=== PATIENT | female | born 1980 | race Caucasian/White ===

== ENCOUNTER 2020-10-15 08:09 | Outpatient (REF) | payer BC, SELFPAY | END 2020-10-15 08:10 | disposition home or self-care (01) | LOC: HO.WFDLDS 08:09 | PROVIDERS: PCP Pediatrics; Visit Provider Internal Medicine | DX: Z20.822 Contact with and (suspected) exposure to COVID-19 (principal) | CPT/HCPCS: 36415; C9803; U0003; U0005 ==

== ENCOUNTER 2024-01-25 15:44 | Outpatient (AMB) | payer BC, SELFPAY ==
--- NOTE | 2024-01-25 15:47 | AM.OFFWIN_ITS ---
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 Denies chest pain, sob. Has tried elevation without relief Exam Awake alert NAD, obese RRR LS CTAB + 1 edema LLE, skin intact, no erythema, + PP, antalgic gait favoring left leg, points to area behind knee, lateral aspect and states she feels pain there, LROM given edema RLE w/o edema, skin intact , +PP Neuros intact Plan: Check stat D-dimer - if + tangela need to go to ED If negative, proceed w/ outpatient US of LLE to eval for cause Close f/u early next week Review of Systems Const All systems reviewed & are unremarkable except as noted in HPI and below Assessment & Plan Assessment & Plan (1) Edema of left lower extremity: Code(s): R60.0 - Localized edema Plan: . Plan . Orders: Orders D Dimer High Sensitivity Today R60.0 - Localized edema US venous duplex LE LT Today R60.0 - Localized edema Coding Level of Care Code Est Pt Level 4 (34782) Diagnoses Edema of left lower extremity R60.0
[2024-01-25 15:54] VITALS: BP 124/74; PULSE 84; O2SAT 97; BMI 46.8
== END 2024-01-25 16:20 | disposition home or self-care (01) ==
PROVIDERS: PCP Physician Assistant Medical; Visit Provider Nurse Practitioner Family
DX: R60.0 Localized edema (principal)
CPT/HCPCS: 99214

== ENCOUNTER 2024-01-25 16:01 | Outpatient (REF) | payer BC, SELFPAY ==
[2024-01-25 18:24] LABS: D Dimer High Sensitivity < 150 NG/ML
== END 2024-01-25 16:02 | disposition home or self-care (01) ==
LOC: HO.WFDLDS 16:01
PROVIDERS: Visit Provider Nurse Practitioner Family
DX: R60.0 Localized edema (principal)
CPT/HCPCS: 36415; 85379

== ENCOUNTER 2024-01-30 10:25 | Outpatient (AMB) | payer BC, SELFPAY ==
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
[2024-01-30 10:36] VITALS: BP 118/82; PULSE 76; RESP 16; TEMP 36.9; O2SAT 95; BMI 49.1
== END 2024-01-30 12:05 | disposition home or self-care (01) ==
PROVIDERS: PCP Physician Assistant Medical; Visit Provider Physician Assistant Medical
DX: J02.9 Acute pharyngitis, unspecified (principal); F41.8 Other specified anxiety disorders; E66.01 Morbid (severe) obesity due to excess calories; Z68.42 Body mass index [BMI] 45.0-49.9, adult; Z13.6 Encounter for screening for cardiovascular disorders; H66.002 Acute suppurative otitis media without spontaneous rupture of ear drum, left ear; H72.92 Unspecified perforation of tympanic membrane, left ear; K59.09 Other constipation
CPT/HCPCS: 87880; 96127; 99215

== ENCOUNTER 2025-01-17 09:06 | Outpatient (REF) | payer BC, SELFPAY ==
[2025-01-17 11:49] LABS: Hematocrit 41.6 % (37.0-47.0); Hemoglobin 13.6 g/dl (12.0-16.0); Mean Corpuscular HGB Conc 32.7 g/dl (31.0-35.0); Mean Corpuscular Volume 91.6 fL (80.0-98.0); Mean Platelet Volume 9.5 fL (9.4-12.3); Platelet Count 354 X10*3/uL (160-400); Red Blood Count 4.54 X10*6/uL (4.20-5.50); Red Cell Distribution Width 12.8 % (11.0-16.0); White Blood Count 5.9 X10*3/uL (4.8-10.8)
[2025-01-17 12:02] LABS: Estimated Average Glucose 108 mg/dL; Hemoglobin A1C 127.3945 umol/L; Hemoglobin A1c % 5.4 % (<6.0)
[2025-01-17 13:09] LABS: Alanine Aminotransferase 27 U/L (0-31); Albumin Level 4.3 g/dL (3.5-5.0); Alkaline Phosphatase 71 U/L (39-117); Anion Gap 10 (12-20); Aspartate Amino Transferase 29 U/L (5-31); Bilirubin Total 0.6 mg/dL (0.0-1.0); Blood Urea Nitrogen 11 mg/dL (9-16); Calcium 8.8 mg/dL (8.4-10.2); Carbon Dioxide 27 mmol/L (22-29); Chloride 106 mmol/L (96-108); Cholesterol 157 mg/dL (<200); Estimated Glomerular Filt Rate > 60; Glucose Random 107 mg/dL (60-115); HDL Cholesterol 33 mg/dL (>40); LDL Cholesterol Calculated 92 mg/dL (<100); Potassium 3.9 mmol/L (3.3-5.1); Sodium 139 mmol/L (135-145); Total Protein 6.7 g/dL (6.5-8.0); Triglycerides 160 mg/dL (<150)
[2025-01-17 13:25] LABS: TSH reflex Free T4 4.23 uIU/mL (0.32-4.0)
[2025-01-17 13:55] LABS: Free T4 (Free Thyroxine) 0.78 ng/dL (0.71-1.85)
== END 2025-01-17 09:07 | disposition home or self-care (01) ==
LOC: HO.WFDLDS 09:06
PROVIDERS: Visit Provider Physician Assistant Medical
DX: E66.01 Morbid (severe) obesity due to excess calories (principal); F41.8 Other specified anxiety disorders; Z13.6 Encounter for screening for cardiovascular disorders; Z13.1 Encounter for screening for diabetes mellitus
CPT/HCPCS: 36415; 80053; 80061; 83036; 84439; 84443; 85027

== ENCOUNTER 2025-01-23 08:31 | Outpatient (AMB) | payer BC, SELFPAY ==
--- NOTE | 2025-01-23 08:38 | A.OFFPC_ITS ---
Vital Signs 01/23/25 08:42 Height 5 ft 9 in Weight 337 lb BMI 49.8 BP 120/82 Blood Pressure Location Rt brachial Position Sitting Respiration 16 Pulse 80 Pulse Source Pulse Oximeter Temp 97.3 F Temp Source Temporal Artery Scan Pulse Oximetry (%) 97 Oxygen Delivery Method Room Air Intake Visit Reasons: Request PE Intake Note: Barbara presents in the office today for a physical Allergies No Known Allergies Allergy (Verified 01/23/25 08:41) Tobacco use date assessed: 01/23/25 Dental Screening Dental Screen Date: 01/23/25 Did you have a dental visit in the last 12 months?: Yes Did you have a dental problem in the last 6 months where you did not have access to dental care?: No Was dental information given to patient?: Patient has dentist HPI HPI Comments History of Present Illness Details 44-year-old female with a past medical h istory of depression with anxiety presents for a physical exam. Depression and anxiety treated with bupropion and sertraline. 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 Mammogram-[facility] [place]. Done in November and normal per patient. Reports tender area below right under arm on and off for a month. No palpable mass. Her grandmother had breast cancer in her 90s. An ultrasound is ordered for further evaluation. Her TSH level is mildly elevated. She endorses fatigue and is struggling with her weight. Admits she is not exercising, and she eats a lot of carbohydrates and sugars. She reports insurance is dropping coverage for GLP 1, and she can not pay [id number]. We discussed phentermine, but she is not comfortable with potential side eff ects. We discussed referral to dietitian and weight loss management. She will call if she wants to pursue this. We discussed lifestyle modifications including trying the [email or web address] diet, exercising, avoiding alcohol. If her TSH remains elevated we will start levothyroxine. ROS: Constitutional: No unexplained weight loss, fever, chills, fatigue or night sweats. Eyes: No vision changes, blurry vision, double vision, eye pain, eye redness, eye discharge. ENT: No hearing loss, sneezing, congestion, runny nose or sore throat. Respiratory: No shortness of breath, cough or sputum production. Cardiovascular: No chest pain, chest pressure or chest discomfort. No palpitations or pedal edema. Gastrointestinal: No anorexia, nausea, vomiting or diarrhea. No abdominal pain or blood in stool. Genitourinary: No dysuria, hematuria, urinary frequency. Neurologic: No headache, dizziness, syncope, unilateral weakness, ataxia, numbness or tingling in the extremities. Musculoskeletal: No muscle pain, back pain, joint pain or swelling. Hematologic/Lymphatics: No bleeding or bruising. No painful lymph nodes. Skin: No rash or changing moles or freckles Endocrine: No cold or heat intolerance. No polyuria or polydipsia. Psychiatric: See HPI .Physical exam: Constitutional: Alert, in no distress. Head: Normocephalic. Eyes: Pupils are equal, round and reactive to light. Extraocular muscles intact. Ear, Nose and Throat: Canals clear. TMs normal. Normal nasal mucosa. No nasal discharge. No oral lesions. Neck: Supple, Full range of motion. No lymphadenopathy. No palpable thyroid masses. Respiratory: Clear to auscultation. Cardiovascular: S1 S2 regular. No murmurs Gastrointestinal: Abdomen soft, non-tender, non-distended. Normal bowel sounds. No palpable masses. Neurologic: No focal neurological deficits. Symmetric patellar reflexes. Moves all extremities spontaneously. Sensation intact bilaterally. Skin: No rashes. Musculoskeletal: Tender area below the right axilla. No palpable mass, discoloration or fluctuance. Extremities: Warm and well perfused. No clubbing, cyanosis or edema. Intact peripheral pulses bilaterally. Psychiatric: Normal mood and affect [facility] Medical History (Updated 01/23/25 @ 13:41 by ALIDA Mcwilliams) Pain in right axilla Routine physical examination Elevated TSH Sore throat Constipation Morbid obesity Tympanic membrane perforation Left otitis media Depression with anxiety Screening for cardiovascular condition Congestion of left ear Depression Anxiety Acid reflux Family History Father Alcoholism Maternal Grandmother Diabetes Maternal Grandfather Diabetes Paternal Grandfather Lung cancer Paternal Grandmother COPD (chronic obstructive pulmonary disease) Other Substance use Social History (Updated 01/23/25 @ 08:42 by Ramona Conn MA) Housing: House Alcohol intake: current Patient Tobacco Use Status: Never used Tobacco e-Cigarette/Vaping Use: Never Used Second Hand Smoke Exposure: No Use of substances other than those prescribed or required for medical reasons: No service: No Current occupational status: employed and other Current occupation: [employer] Current occupational exposures/hazards: No Cognitive needs: No Hearing needs: No Vision needs: No Questionnaire PHQ-9 Over the last 2 weeks, how often have you been bothered by any of the following problems? 1. Little interest or pleasure in doing things: several days 2. Feeling down, depressed, or hopeless: several days 3. Trouble falling or staying asleep, or sleeping too much: not at all 4. Feeling tired or having little energy: several days 5. Poor appetite or overeating: several days 6. Feeling bad about yourself - or that you are a failure or have let yourself or your family down: several days 7. Trouble concentrating on things, such as reading the newspaper or watching television: several days 8. Moving or speaking so slowly that other people could have noticed. Or the opposite - being so fidgety or restless that you have been moving around a lot more than usual: several days 9. Thoughts that you would be better off or of hurting yourself in some way: not at all Total score: 7 Depression Screening Interpretation: Positive Depression Screening Follow-up: In treatment Depression Screening Done: Yes 85445 - PHQ-9 Billing: Yes Source: Developed by Drs. Edson Melton, Rain Hooker, Vito Stratton and colleagues, with an educational eduardo from [employer]. Thrive Questionnaire Date Thrive assessed: 01/23/25 I am a: Patient What is your living situation today?: I have a steady place to live Within the past 12 months, did the food you bought not last and you didn't have the money to get more?: Never true Within the past 12 months, did you worry whether your food would run out before you got money to buy more?: Never true Do you have trouble paying for medicines?: No Do you have trouble getting transportation to medical appointments?: No Do you have trouble paying your heating and electricity bill?: No Do you have trouble taking care of your child, family member or friend?: No Do you have trouble with day-to-day activities such as bathing, preparing meals, shopping, managing finances, etc.?: No Are you currently unemployed and looking for a job?: No Are you interested in more education?: No Please select the resources that you would like help with: None Currently or been in a relationship where the following occur: No concerns reported THRIVE Score: 0 AUDIT C Alcohol Use Questionnaire (AUDIT-C) 1. How often do you have a drink containing alcohol?: 2-4 times a month 2. How many drinks containing alcohol do you have on a typical day when you are drinking?: 1 or 2 3. How often do you have six or more drinks on one occasion?: Never Total Score: 2 KALPANA-7 AMB Questionnaire KALPANA-7 Date KALPANA - 7 assessed: 01/23/25 Feeling nervous, anxious, or on edge: 1 = Several days Not being able to stop or control worryin = Not at all Worrying too much about different things: 1 = Several days Trouble relaxin = Several days Being so restless that it is hard to sit still: 1 = Several days Becoming easily annoyed or irritable: 1 = Several days Feeling afraid as if something awful might happen: 1 = Several days Total KALPANA-7 score (0-4 normal; 5-9 mild; 10-14 moderate; 15-21 severe): 6 Source: Developed by Drs. Edson Melton, Rian Hooker, Vito Stratton and colleagues, with an educational eduardo from [employer]. KALPANA-7 Assessment Billing KALPANA-7 Assessment Tool: KALPANA-7 Assessment 63540 Physical exam (Primary Care) Vital Signs: Last Vital Signs Temp 97.3 F 01/23/25 08:42 Pulse 80 01/23/25 08:42 Resp 16 01/23/25 08:42 BP 120/82 01/23/25 08:42 Pulse Ox 97 01/23/25 08:42 Oxygen Delivery Method Room Air 01/23/25 08:42 BMI result Body Mass Index 49.8 Tobacco/Smoking Status: Tobacco use Status Tobacco use date assessed 01/23/25 01/23/25 08:47 Patient Tobacco Use Status Never used Tobacco 01/23/25 08:47 e-Cigarette/Vaping Use Never Used 01/23/25 08:47 PHQ-9: PHQ-9 Score PHQ-9: Total score 7 01/23/25 08:49 Depression Screening Interpretation: Positive Depression Screening Follow-up: In treatment Thrive Assessment: Date of Thrive Assessment Date Thrive assessed 01/23/25 01/23/25 08:47 Currently or been in a relationship where the following occur: No concerns reported Coding Level of Care Code Est Pt Prev Care 40-64y(10425) Diagnoses Routine physical examination Z00.00 Elevated TSH R79.89 Morbid obesity E66.01 Depression with anxiety F41.8 Screening for cardiovascular condition Z13.6 Pain in right axilla M79.621 Additional Codes KALPANA-7 Assessment Billing - KALPANA-7 Assessment Tool: KALPANA-7 Assessment 02146 ([id number]) PHQ-9 - 31544 - PHQ-9 Billing: Yes ([id number]) Assessment & Plan Assessment & Plan (1) Routine physical examination: Code(s): Z00.00 - Encounter for general adult medical examination without abnormal findings Category: Medical (2) Elevated TSH: Code(s): R79.89 - Other specified abnormal findings of blood chemistry Category: Medical (3) Morbid obesity: Code(s): E66.01 - Morbid (severe) obesity due to excess calories Category: Medical (4) Depression with anxiety: Code(s): F41.8 - Other specified anxiety disorders Category: Medical (5) Screening for cardiovascular condition: Code(s): Z13.6 - Encounter for screening for cardiovascular disorders Category: Medical (6) Pain in right axilla: Code(s): M79.621 - Pain in right upper arm Category: Medical Plan Patient is seen today for a routine physical. As part of this visit we reviewed the following issues, which are considered and essential part of preventative health in this age group: - Breast Cancer screening - Annual Office Analyst exam - Screening for colon cancer - Blood pressure screenin - Cholesterol screening - Osteoporosis prevention including calcium/vitamin D intake, weight bearing exercise & smoking cessation - Nutritional and exercise counseling - Counseling of injury prevention including fire prevention, smoke alarms and seat belt usage - Screening for depression - Education about skin cancer - Recommendations about immunizations - Recommendation of an eye exam - Screening for substance abuse Orders: Orders TSH reflex Free T4 Today R79.89 - Other specified abnormal findings of blood chemistry US breast RT limited Today M79.621 - Pain in right upper arm
[2025-01-23 08:42] VITALS: BP 120/82; PULSE 80; RESP 16; TEMP 36.3; O2SAT 97; BMI 49.8
== END 2025-01-23 09:35 | disposition home or self-care (01) ==
LOC: HO.HMCFM 08:32
PROVIDERS: PCP Physician Assistant Medical; Visit Provider Physician Assistant Medical
DX: Z00.00 Encounter for general adult medical examination without abnormal findings (principal); R79.89 Other specified abnormal findings of blood chemistry; E66.01 Morbid (severe) obesity due to excess calories; Z68.42 Body mass index [BMI] 45.0-49.9, adult; F41.8 Other specified anxiety disorders; Z13.6 Encounter for screening for cardiovascular disorders; M79.621 Pain in right upper arm

== ENCOUNTER → 2025-01-23 08:31 | Outpatient (BNVA) | payer BC, SELFPAY | PROVIDERS: PCP Physician Assistant Medical; Visit Provider Physician Assistant Medical | DX: Z00.00 Encounter for general adult medical examination without abnormal findings (principal); Z13.31 Encounter for screening for depression; R79.89 Other specified abnormal findings of blood chemistry; E66.01 Morbid (severe) obesity due to excess calories; Z68.42 Body mass index [BMI] 45.0-49.9, adult; F41.8 Other specified anxiety disorders; M79.621 Pain in right upper arm; Z71.3 Dietary counseling and surveillance | CPT/HCPCS: 96127 ==